=== PATIENT | female | born 1935 | race African-American/Black ===

== ENCOUNTER 2016-04-20 11:25 | Inpatient (IN) | payer OTHER ==
[2016-04-20 12:20] LABS: HEMATOCRIT 28.4 % (37.0-47.0); HEMOGLOBIN 9.2 g/dL (12.0-16.0); IMM GRAN# 0.05 X1000 (0.0-0.04); IMM GRAN% 0.4 % (0.0-0.5); LYMPH# 0.92 X1000 (1.2-3.4); MANUAL DIFF NEEDED? NO; MCH 29.3 PG (27-31); MCHC 32.4 g/dL (33-37); MCV 90.4 FL (81-99); MONO# 0.48 X1000 (0.11-0.59); MONO% 3.7 % (1.7-9.3); MPV 9.1 FL (7.4-10.4); NEUT% 88.9 % (42.2-75.2); PLT 244 X1000 (130-400); RBC 3.14 XMIL (4.2-5.4)
--- NOTE | 2016-04-20 12:36 | PROVIDER DOCUMENTATION ---
HPI-Musculoskeletal Pain/Inj - GENERAL Source: patient - HX OF PRESENT ILLNESS-MUSKULOSKELTAL Quality of Pain: reports: aching Severity in ED: mild, moderate Onset/Duration: 5 days ago Timing: still present Any recent injury?: Yes Locality of Occurance: Home Similar Symptoms Previously?: No Recently seen or treated by another doctor?: No <Tye Mendoza - Last Filed: 04/20/16 13:29> <Jeremiah Soto - Last Filed: 04/20/16 17:27> <Rickie Brown - Last Filed: 04/20/16 17:39> - GENERAL Chief Complaint: Extremity Pain Stated Complaint: HEMATOMA TO LEFT UPPER ARM Time Seen by Provider: 04/20/16 12:20 - HX OF PRESENT ILLNESS-MUSKULOSKELTAL Nature of Presenting Problem: 80 y/o complains of left arm pain from an injury causing a hematoma 5 days ago. Pt states she take Coumadin to prevent blood clots. (Tye Mendoza) Review of Systems - Adult - REVIEW OF SYSTEMS - ADULT Constitutional: denies: chills, fever Eyes: reports: no symptoms reported Ears, Nose, Mouth & Throat: reports: no symptoms reported Cardiovascular: denies: chest pain, edema Respiratory: reports: no symptoms reported Gastrointestinal: reports: no symptoms reported Genitourinary: reports: no symptoms reported Musculoskeletal: reports: no symptoms reported Integumentary: reports: other (hematoma to left upper arm). denies: hives, itching Neurological: reports: no symptoms reported Psychiatric: reports: no symptoms reported Endocrine: reports: no symptoms reported Hematologic/Lymphatic: reports: no symptoms reported Allergic/Immunologic: reports: no symptoms reported All Other Systems: Reviewed and Negative <Tye Mendoza - Last Filed: 04/20/16 13:29> Past History - Adult - PAST MEDICAL HISTORY-ADULT Review of Records: reports: Old Records Reviewed, Nursing Assessment Review, Medications Reviewed <Tye Mendoza - Last Filed: 04/20/16 13:29> Physical Exam-Injury Related - Physical Exam-Injury Related Initial Vital Signs Reviewed: Yes General Appearance: appears well, alert, no apparent distress Eyes: PERRL/EOMI, pink conjunctivae Head, Ears, Nose, Mouth & Throat: moist mucous membranes, normal ENT inspection , TMs normal, pharynx normal Neck: non-tender, full range of motion, supple, normal inspection Respiratory: lungs clear, normal breath sounds, no pleuratic chest pain, no respiratory distress Cardiovascular: normal peripheral pulses, regular rate, rhythm Abdominal Exam: normal bowel sounds, non tender, soft Back Exam: normal inspection, no CVA tenderness, no vertebral tenderness Extremity: normal range of motion, normal gait, swelling, tenderness (left bicep has a large hematoma.). negative: normal inspection Integumentary: normal color, warm/dry Neurologic: grossly normal, no motor/sensory deficits Psych/Mental Status: normal mood/affect, normal thought content, normal thought process, oriented x 3 <Tye Mendoza - Last Filed: 04/20/16 13:29> Progress - EKG 1 Time of EKG reading by physician:: 13:12 EKG Read and Signed by:: Rickie Brown EKG Interpretation (*Must complete 3 of following elements*): Abnormal Rate: 56 Rhythm: sinus alva with sinus arrhythmia QRS: LVH Comments: nonspecfic T wave abnormality - XRAY 1 XRAY: Left XRAY Study: Humerus Impression: Normal XRAY Interpretation: negative fx <Tye Mendoza - Last Filed: 04/20/16 13:29> - CONSULTS/PCP/HOSPITALIST Notification #1 *Consult/PCP/Hospitalist*: (Hospitalist) Time Discussed: 17:28 Consult Disposition: Admit <Jeremiah Soto - Last Filed: 04/20/16 17:27> <Rickie Brown - Last Filed: 04/20/16 17:39> - PLAN OF CARE/RESULTS Progress/Plan/Lab Results: Orders Category Date Time Status HUMERUS-LEFT [RAD] Stat Exams 04/20/16 12:33 Taken CBC WITH ELECTRONIC DIFF [HEME] Stat Lab 04/20/16 12:07 Completed COMPREHENSIVE METABOLIC PANEL [CHEM] Stat Lab 04/20/16 12:07 Completed [address]IME WITH INR PL [COAG] Stat Lab 04/20/16 12:[address] [COAG] Stat Lab 04/20/16 12:07 Completed Vital Signs Temp Pulse Resp BP Pulse Ox 04/20/16 11:27 97.7 F 82 16 179/082 100 No Known Allergies Allergy (Verified 04/20/16 11:39) Amlodipine Besylate/Benazepril [Amlodipine-Benazepril 5-40 mg] 1 PO DAILY Bumetanide 1 PO DAILY 11/16/11 Ferrous Sulfate 1 PO DAILY 11/16/11 Folic Acid 1 mg PO DAILY 11/16/11 Levothyroxine [Synthroid] 100 microgm PO DAILY 11/16/11 Metoprolol Succinate E.r. [Toprol Xl] 25 mg PO BID 11/16/11 Oxybutynin Chloride [Oxybutynin Chloride ER] 1 PO DAILY 11/16/11 SIMVAstatin [Zocor] 40 mg PO QHS 11/16/11 Tramadol HCl [Ultram] 50 mg PO BID PRN 11/16/11 Coumadin 8.5 mg PO DAILY 12/17/11 Coumadin 4.5 mg PO DAILY 12/17/11 Laboratory 04/20/16 04/20/16 04/20/16 12:07 12:07 12:07 WBC 13.11 H RBC 3.14 L Hgb 9.2 L Hct 28.4 L MCV 90.4 MCH 29.3 MCHC 32.4 L RDW Std Deviation 14.5 Plt Count 244 MPV 9.1 Immature Gran % (Auto) 0.4 Neut % (Auto) 88.9 H Lymph % (Auto) 7.0 L Sharp % (Auto) 3.7 Eos % (Auto) 0.0 Baso % (Auto) 0.0 Immature Gran # (Auto) 0.05 H Neut # (Auto) 11.66 H Lymph # (Auto) 0.92 L Sharp # (Auto) 0.48 Eos # (Auto) 0.00 Baso # (Auto) 0.00 Segmented Neutrophils Not Reportable PT 29.5 H INR 2.81 H APTT (Factor Assay) 37.4 Sodium 119 L* Potassium 6.2 H* Chloride 83 L Carbon Dioxide 26 Anion Gap 10 BUN 23 H Creatinine 1.1 H Estimated GFR/1.73 m2 48 BUN/Creatinine Ratio 21 Glucose 154 H Calculated Osmolality 247 Calcium 9.8 Total Bilirubin 1.30 H AST 19 ALT 20 Alkaline Phosphatase 50 Total Protein 7.8 Albumin 4.2 Globulin 4.0 Albumin/Globulin Ratio 1.0 (Tye Mendoza) Orders Category Date Time Status HUMERUS-LEFT [RAD] Stat Exams 04/20/16 12:33 Completed BMP [BASIC METABOLIC PANEL] [CHEM] Stat Lab 04/20/16 15:29 Completed CBC WITH ELECTRONIC DIFF [HEME] Stat Lab 04/20/16 12:07 Completed COMPREHENSIVE METABOLIC PANEL [CHEM] Stat Lab 04/20/16 12:07 Completed [address]IME WITH INR PL [COAG] Stat Lab 04/20/16 12:[address] [COAG] Stat Lab 04/20/16 12:07 Completed 0.9% Sodium Chloride Inj [Ns] 1,000 ml Med 04/20/16 13:38 Discontinued IV 999 mls/hr 0.9% Sodium Chloride Inj [Ns] 1,000 ml Med 04/20/16 15:10 Discontinued IV 999 mls/hr 0.9% Sodium Chloride Inj [Ns] 250 ml Med 04/20/16 13:07 Discontinued IV 999 mls/hr EKG [EKG] Stat Ther 04/20/16 13:07 Draft Laboratory Tests 04/20/16 04/20/16 04/20/16 12:07 12:07 12:07 WBC 13.11 H RBC 3.14 L Hgb 9.2 L Hct 28.4 L MCV 90.4 MCH 29.3 MCHC 32.4 L RDW Std Deviation 14.5 Plt Count 244 MPV 9.1 Immature Gran % (Auto) 0.4 Neut % (Auto) 88.9 H Lymph % (Auto) 7.0 L Sharp % (Auto) 3.7 Eos % (Auto) 0.0 Baso % (Auto) 0.0 Immature Gran # (Auto) 0.05 H Neut # (Auto) 11.66 H Lymph # (Auto) 0.92 L Sharp # (Auto) 0.48 Eos # (Auto) 0.00 Baso # (Auto) 0.00 Segmented Neutrophils Not Reportable PT 29.5 H INR 2.81 H APTT (Factor Assay) 37.4 Sodium 119 L* Potassium 6.2 H* Chloride 83 L Carbon Dioxide 26 Anion Gap 10 BUN 23 H Creatinine 1.1 H Estimated GFR/1.73 m2 48 BUN/Creatinine Ratio 21 Glucose 154 H Calculated Osmolality 247 Calcium 9.8 Total Bilirubin 1.30 H AST 19 ALT 20 Alkaline Phosphatase 50 Total Protein 7.8 Albumin 4.2 Globulin 4.0 Albumin/Globulin Ratio 1.0 04/20/16 15:29 WBC RBC Hgb Hct MCV MCH MCHC RDW Std Deviation Plt Count MPV Immature Gran % (Auto) Neut % (Auto) Lymph % (Auto) Sharp % (Auto) Eos % (Auto) Baso % (Auto) Immature Gran # (Auto) Neut # (Auto) Lymph # (Auto) Sharp # (Auto) Eos # (Auto) Baso # (Auto) Segmented Neutrophils PT INR APTT (Factor Assay) Sodium 120 L* Potassium 5.6 H Chloride 85 L Carbon Dioxide 23 L Anion Gap 12 BUN 23 H Creatinine 1.1 H Estimated GFR/1.73 m2 48 BUN/Creatinine Ratio 21 Glucose 141 H Calculated Osmolality 248 Calcium 9.5 Total Bilirubin AST ALT Alkaline Phosphatase Total Protein Albumin Globulin Albumin/Globulin Ratio Vital Signs - 24 hr 04/20/16 04/20/16 11:27 14:52 Temperature 97.7 F 97.6 F Pulse Rate 82 71 Respiratory 16 13 Rate Blood Pressure 179/082 189/73 O2 Sat by Pulse 100 95 Oximetry 1633 Hospitalist paiged (Jeremiah Soto) Departure <Tye Mendoza - Last Filed: 04/20/16 13:29> - Departure Time of Disposition Order: 17:28 Certified Medical Emergency: Emergent <Jeremiah Soto - Last Filed: 04/20/16 17:27> - Departure Time of Disposition Order: 17:24 Certified Medical Emergency: Emergent <Rickie Brown - Last Filed: 04/20/16 17:39> - Departure DIAGNOSIS: Hyponatremia, Hyperkalemia Disposition: ADMITTED INPATIENT 09 Condition: Stable Referrals: Oneida West MD [Primary Care Provider] - Attestation - Scribe Verification/Attestation Scribe:: Tye Mendoza Acting as Scribe for:: Rickie Brown Scribe documention review:: This chart was documented by a scribe and accurately reflects the service the provider performed and the decisions made by the provider. <Tye Mendoza - Last Filed: 04/20/16 13:29> - Scribe Verification/Attestation #2 Shift Change Time: 14:00 Scribe Name: Jeremiah Soto Acting as Scribe for:: Rickie Brown <Jeremiah Soto - Last Filed: 04/20/16 17:27> Physician Attestation
[2016-04-20 12:42] LABS: INR 2.81 (0.86-1.15); PROTIME 29.5 Seconds (12.1-15.5)
[2016-04-20 12:50] LABS: ALBUMIN 4.2 g/dL (3.5-5.0); CALCIUM 9.8 mg/dL (8.8-10.2); TOTAL BILIRUBIN 1.3 mg/dL (0.20-1.00); TOTAL PROTEIN 7.8 g/dL (6.3-8.3)
[2016-04-20 13:01] LABS: POTASSIUM 6.2 mmol/L (3.5-5.1)
[2016-04-20 13:02] LABS: PTT PL 37.4 Seconds (22.6-43.9)
[2016-04-20] MEDS ORDERED: NS 250 ML IV ONE (13:07)
--- NOTE | 2016-04-20 13:20 | EKG Report ---
Test Performed on : 04/20/2016 1:12:26 PM Test Reason : hyperkalemia Blood Pressure : / mmHG Vent. Rate : 056 BPM Atrial Rate : 056 BPM P-R Int : 148 ms QRS Dur : 090 ms QT Int : 424 ms P-R-T Axes : 061 -17 004 degrees QTc Int : 409 ms Sinus bradycardia. with sinus arrhythmia. Voltage criteria for left ventricular hypertrophy Nonspecific T wave abnormality Abnormal ECG When compared with ECG of 17-DEC-2011 11:01, Nonspecific T wave abnormality now evident in Inferior leads T wave inversion now evident in Lateral leads Unconfirmed Result
[2016-04-20] MEDS ORDERED: NS 1,000 ML IV ONE ×2 (13:38→15:10)
--- NOTE | 2016-04-20 14:09 | Diag Imaging Result Document ---
PROCEDURE NAME: HUMERUS-LEFT - 04/20/2016 LEFT HUMERUS, 2 VIEWS: FINDINGS: There is no evidence of fracture or dislocation. No other definite bony abnormalities are present. IMPRESSION: No acute disease.
[2016-04-20 16:28] LABS: CALCIUM 9.5 mg/dL (8.8-10.2); POTASSIUM 5.6 mmol/L (3.5-5.1)
[2016-04-20] MEDS ORDERED: CATAPRES PO ONE (16:59)
[2016-04-20] MEDS: COUMADIN PO SCH (22:28)
[2016-04-20] MEDS: TOPROL XL PO SCH (22:28)
[2016-04-21] MEDS ORDERED: ZOFRAN IV ONE (02:36)
[2016-04-21 03:29] LABS: ALBUMIN 3.6 g/dL (3.5-5.0); CALCIUM 9.3 mg/dL (8.8-10.2); POTASSIUM 4.4 mmol/L (3.5-5.1); TOTAL BILIRUBIN 0.8 mg/dL (0.20-1.00); TOTAL PROTEIN 6.7 g/dL (6.3-8.3)
--- NOTE | 2016-04-21 03:41 | EKG Report ---
Test Performed on : 04/21/2016 03:33:41 AM Test Reason : EKG changes Blood Pressure : / mmHG Vent. Rate : 054 BPM Atrial Rate : 054 BPM P-R Int : 150 ms QRS Dur : 092 ms QT Int : 446 ms P-R-T Axes : 059 -31 000 degrees QTc Int : 422 ms Sinus bradycardia. with frequent premature ventricular complexes. Left axis deviation Voltage criteria for left ventricular hypertrophy T wave abnormality, consider lateral ischemia Abnormal ECG When compared with ECG of 21-APR-2016 02:38, (Unconfirmed) premature ventricular complexes. are now present T wave inversion more evident in Lateral leads Confirmed by Jose De Jesus Bacon MD ([id number]) on 04/21/2016 8:57:39 PM
[2016-04-21] MEDS ORDERED: NS 1,000 ML IV SCH (04:00)
[2016-04-21] MEDS: SYNTHROID PO SCH (06:20)
[2016-04-21 08:38] LABS: HEMATOCRIT 26.1 % (37.0-47.0); HEMOGLOBIN 8.7 g/dL (12.0-16.0); MCH 30.2 PG (27-31); MCHC 33.3 g/dL (33-37); MCV 90.6 FL (81-99); MPV 9.6 FL (7.4-10.4); RBC 2.88 XMIL (4.2-5.4)
[2016-04-21] MEDS ORDERED: BENAZEPRIL PO SCH (09:00)
[2016-04-21] MEDS ORDERED: AMLODIPINE BESYLATE PO SCH (09:00)
[2016-04-21] MEDS: NORVASC PO SCH (09:24)
[2016-04-21] MEDS: LOTENSIN PO SCH (09:24)
[2016-04-21] MEDS: TOPROL XL PO SCH ×2 (09:25→20:22)
[2016-04-21 09:29] LABS: ALBUMIN 3.9 g/dL (3.5-5.0); CALCIUM 9.4 mg/dL (8.8-10.2); MAGNESIUM 1.7 mg/dL (1.5-2.7); POTASSIUM 4.6 mmol/L (3.5-5.1); TOTAL PROTEIN 6.7 g/dL (6.3-8.3)
--- NOTE | 2016-04-21 10:48 | PROGRESS NOTE ---
DATE: 04/21/2016 SUBJECTIVE: Patient notes she is feeling a little bit better. Denies any current chest pain, palpitations. Denies any fevers or chills. PHYSICAL EXAMINATION: Vital Signs: Temperature 98 degrees, pulse 65, respiratory rate 18, blood pressure 193/53 to 156/59, saturation 98% on room air. General: Patient is a well-developed female who is currently in no respiratory distress. She is awake, alert. Neck: Supple. CV: Regular rate. Chest: Relatively clear. Abdomen: Soft. Extremities: She moves all extremities. Noted to have large bruising and discoloration to her left upper extremity but this has not changed. ASSESSMENT: 1. Hyponatremia. Sodium is slightly improved. It was 120 on admission and currently 123. 2. Hyperkalemia, improving. Currently 4.4. 3. Hyperbilirubinemia, improved after volume replenishment. 4. Leukocytosis. 5. Anemia of chronic disease. 6. Hypertension. PLAN: We will restart the patient's benazepril as her potassium is much better. It appears she was volume depleted which likely caused her potassium to elevate more than benazepril itself. We will continue to follow. Continue IV fluids to replace her sodium. Further orders as needed. We will recheck labs in the a.m. and adjust as needed.
[2016-04-21 13:30] LABS: URINE SOURCE VOIDED
[2016-04-21 13:34] LABS: BILIRUBIN URINE NEGATIVE (NEGATIVE); BLOOD URINE NEGATIVE (NEGATIVE); CLARITY CLEAR (CLEAR); COLOR YELLOW; GLUCOSE URINE NEGATIVE (NEGATIVE); LEUKOCYTES URINE TRACE (NEGATIVE); NITRITE URINE NEGATIVE (NEGATIVE); PROTEIN URINE 1+(30 mg/dL) mg/dL (NEGATIVE); SP GRAVITY URINE 1.005; UROBILINOGEN URINE NORMAL
[2016-04-21 13:42] LABS: URINE CULTURE PL NEEDED? YES; URINE EPITHELIAL CELLS >10 /HPF (<10); URINE RBC <10 /HPF (<10)
--- NOTE | 2016-04-21 16:28 | HISTORY AND PHYSICAL ---
CHIEF COMPLAINT: Left arm injury with hematoma. HISTORY OF PRESENT ILLNESS: This is an 80-year-old female with a history of osteoarthritis, hypertension, hypothyroid, right colon tubulovillous adenoma, anemia, COPD, who presented to the emergency room for evaluation of a left upper arm hematoma. Patient is on warfarin. She states that this happened 5 days ago that she fell and hit her arm up against a piece of furniture. She denies any visual bleeding or any numbness, tingling or change in sensation to her arm or her hand. Good PMS is noted to the left hand. X-ray of the left humerus revealed no evidence of fracture or dislocation. No other definite bony abnormality seen. Labs revealed a sodium of 120 with a potassium of 5.6, a BUN of 23, a creatinine of 1.1 and a glucose of 141. She was given 3 L of saline in the emergency room and is being admitted for further evaluation and treatment. PAST MEDICAL HISTORY: Hypertension, hypothyroidism, COPD, DVT, osteoarthritis, right colon tubulovillous adenoma. PAST SURGICAL HISTORY: Left knee arthroplasty, right hip arthroplasty, right hemicolectomy secondary to tubulovillous adenoma of the right colon and thyroidectomy. SOCIAL HISTORY: She denies alcohol, tobacco, or illicit drug use. ALLERGIES: No known drug allergies. MEDICATIONS: Will be obtained by the nursing staff. REVIEW OF SYSTEMS: A 14 point review of systems is discussed with the patient with pertinent positives stated in the HPI. She denies chest pain, palpitations, dizziness, syncope, shortness of breath, PND, orthopnea, black or bloody vomitus, black or bloody stools, nausea, vomiting, diarrhea or constipation. Hematuria, dysuria, frequency, urgency. Change and sensation to the left arm or hand. PHYSICAL EXAMINATION: GENERAL: This is an 80-year-old female who is sitting in the bed with no distress. VITAL SIGNS: Blood pressure is 156/59 with a heart rate of 60. Respirations are 18, temperature is 98.1 degrees with oxygen saturations of 98-100% on room air. CARDIOVASCULAR: Regular rate and rhythm. S1, S2 appreciated. PULMONARY: Breath sounds are clear. No increased work of breathing noted. GASTROINTESTINAL: Abdomen is soft, nontender, nondistended with bowel sounds in all 4 quadrants. BACK: No CVAT. No spine tenderness. MUSCULOSKELETAL: Good range of motion of joints. NEUROLOGIC: She is alert and oriented x3. EXTREMITIES: No clubbing, cyanosis, or edema to right upper extremity or lower extremities. Left biceps is a little edematous. It is tender. There is a large hematoma noted with good PMS to her left hand. Her calves are nontender. Pulses are palpable x4. ASSESSMENT: 1. Hyponatremia. We will continue to trend labs and give gentle hydration. 2. Hyperkalemia. We will continue to monitor. We will trend labs and treat as appropriate. 3. Hyperbilirubinemia. It did improve after hydration. We will trend labs. 4. Leukocytosis. It is improving. She is afebrile. We will follow labs. 5. Anemia of chronic disease. We will trend labs daily. 6. Hypertension. We will hold her benazepril. as well as her Bumex because of her hyponatremia. We will identify her correct doses and continue her other medications. She does have a history of deep venous thrombosis in the past. She does take Coumadin. We will trend INRs daily and dose keeping her INR between 2 and 3. Dictated by ZOLTAN Marvin for Jelani Molina MD
[2016-04-21 18:29] LABS: CALCIUM 9.2 mg/dL (8.8-10.2); POTASSIUM 4.6 mmol/L (3.5-5.1)
[2016-04-21] MEDS: COUMADIN PO SCH (20:21)
[2016-04-21] MEDS ORDERED: TYLENOL PO PRN (22:58)
[2016-04-22] MEDS: SYNTHROID PO SCH (06:05)
[2016-04-22 07:09] LABS: HEMATOCRIT 24.7 % (37.0-47.0); HEMOGLOBIN 8.1 g/dL (12.0-16.0); MCH 29.9 PG (27-31); MCHC 32.8 g/dL (33-37); MCV 91.1 FL (81-99); RBC 2.71 XMIL (4.2-5.4)
[2016-04-22 07:21] LABS: INR 2.91 (0.86-1.15); PROTIME 30.3 Seconds (12.1-15.5)
[2016-04-22 07:29] LABS: ALBUMIN 3.3 g/dL (3.5-5.0); CALCIUM 8.8 mg/dL (8.8-10.2); MAGNESIUM 1.7 mg/dL (1.5-2.7); POTASSIUM 4.2 mmol/L (3.5-5.1); TOTAL BILIRUBIN 0.9 mg/dL (0.20-1.00); TOTAL PROTEIN 6.2 g/dL (6.3-8.3)
[2016-04-22] MEDS: TOPROL XL PO SCH ×2 (08:17→20:54)
[2016-04-22] MEDS: LOTENSIN PO SCH (08:17)
[2016-04-22] MEDS: NORVASC PO SCH (08:17)
--- NOTE | 2016-04-22 09:29 | PROGRESS NOTE ---
DATE: 04/22/2016 SUBJECTIVE: The patient notes she is feeling a little bit better. Denies any chest pain or palpitations. Notes she has not really been out of bed but she has still been tired and fatigued and needs help to get up. Denies any fevers or chills. OBJECTIVE: Vital signs: Temperature 98, pulse 59, respiratory 18, BP 151/51. General: The patient is a well-developed female who is currently in no respiratory distress. She is awake, alert, pleasant to talk with. Neck: Supple. CV: Regular rate. Chest: Relatively clear. Abdomen: Soft. Extremities: Moves all extremities. Neurologic: No changes. ASSESSMENT: 1. Hyponatremia. 2. Hyperkalemia. 3. Hyperbilirubinemia. 4. Leukocytosis, resolved. 5. Anemia of chronic disease. Hemoglobin and hematocrit are still 8 and 24. Therefore, will hold transfusion currently. 6. Large bruising to left upper extremity secondary to fall and chronic anticoagulation with Coumadin. 7. Hypertension. PLAN: We will continue to follow. Her BMP is still pending this morning. We will follow her sodium levels. Continue metoprolol, Norvasc, and Lotensin for her blood pressure and Synthroid for her hypothyroidism.
[2016-04-22] MEDS: COUMADIN PO SCH (20:54)
[2016-04-23] MEDS: SYNTHROID PO SCH (06:06)
[2016-04-23 06:08] LABS: INR 2.66 (0.86-1.15); PROTIME 28.3 Seconds (12.1-15.5)
[2016-04-23] MEDS ORDERED: ROCEPHIN 1 GM/NS 50 ML IV SCH (06:30)
[2016-04-23 07:03] LABS: ALBUMIN 3.6 g/dL (3.5-5.0); MAGNESIUM 1.7 mg/dL (1.5-2.7); POTASSIUM 4.5 mmol/L (3.5-5.1); TOTAL PROTEIN 6.2 g/dL (6.3-8.3)
[2016-04-23 07:09] LABS: HEMATOCRIT 25.1 % (37.0-47.0); HEMOGLOBIN 8.4 g/dL (12.0-16.0); MCH 30.7 PG (27-31); MCHC 33.5 g/dL (33-37); MCV 91.6 FL (81-99); RBC 2.74 XMIL (4.2-5.4)
[2016-04-23] MEDS ORDERED: NORVASC PO SCH (09:00)
[2016-04-23] MEDS: LOTENSIN PO SCH (09:10)
[2016-04-23] MEDS: TOPROL XL PO SCH (09:10)
[2016-04-23 12:01] VITALS: BP 105/42
--- NOTE | 2016-04-23 15:04 | DISCHARGE SUMMARY ---
ADMISSION DATE: 04/20/2016 DISCHARGE DATE: 04/23/2016 PRIMARY CARE PHYSICIAN: Oneida West MD DIAGNOSES: 1. Hyponatremia, resolved. 2. Hyperkalemia, resolved. 3. Hyperbilirubinemia, resolved. 4. Leukocytosis, resolved. 5. Anemia of chronic disease, stable. 6. Hypertension, stable. 7. Large bruising to left upper extremity secondary to fall and chronic anticoagulation with Coumadin. DIAGNOSTICS: On 04/20/2016, humerus x-ray revealed no evidence of fracture or dislocation. No other definite bony abnormalities. No acute disease. MICROBIOLOGY: Urine culture revealed Klebsiella pneumoniae, pansensitive. HOSPITAL COURSE: Ms. Argueta presented to the emergency room for evaluation of a left arm injury. She did have a hematoma to her left upper arm. She stated this was after a fall. X-rays revealed no fracture or dislocation. She was found to be hyponatremic with a sodium of 119. This sodium was replenished throughout the hospitalization. We did hold her diuretics. Potassium was 5.6. This was trended, and it has been stable at 4.2 to 4.5. She did have a white count of 13 and urine that appeared infected. She was started on Rocephin. Urine did grow Klebsiella. She is being discharged on Cipro. We did trend bilirubin. It was 1.2 on admission, and after hydration she was 0.9 to 1. INR remained within normal limits at 2.6 to 2.9. Blood pressures ran in the 150 to 190 over 50 to 70 range. Her Norvasc was, therefore, increased from 5 mg to 10 mg daily. Throughout the hospitalization, her left upper arm was bruised and discolored, but she did have good movement and sensation with good pulses below, good capillary refill. She denied a change in sensation from right to left arm. PHYSICAL EXAMINATION: Cardiovascular: Regular rate and rhythm. S1 and S2 appreciated. Pulmonary: Breath sounds are clear. No increased work of breathing noted. Gastrointestinal: Abdomen is soft, nontender, nondistended with bowel sounds in all 4 quadrants. Extremities: No clubbing, cyanosis, or edema to right arm or bilateral lower extremities. Left upper extremity, the left upper arm is edematous secondary to bruising, but as stated before, it has good pulses and capillary refill. Her calves are nontender. DISCHARGE MEDICATIONS: Norvasc 10 daily, Cipro 500 mg b.i.d. for 5 days; warfarin 2 mg with Coumadin 5 mg on Tuesday, Tuesday, Tuesday, , Tuesday, Tuesday and 2 mg as directed; folic acid 1 mg daily, Synthroid 100 mcg daily, Toprol-XL 25 b.i.d., Benicar 20/12.5 daily, amlodipine/benazepril 5/40 daily, Zocor 40 mg every night at bedtime. FOLLOWUP: 1. She is to call her provider who manages her Coumadin, notify them of her arm hematoma, as well as hospitalization and medications so her dose can be adjusted. 2. She is to follow up with her primary care provider in 1 to 2 weeks. DISPOSITION: She is being discharged home in stable condition with family members. TIME SPENT: This is a greater than 30 minute discharge from 7:30 to 8:10. Dictated by ZOLTAN Marvin for Jelani Molina MD
== END 2016-04-23 14:00 | disposition home or self-care (01) | DRG 641 ==
LOC: P.ED 11:25 → P.MEDSURG 18:48
PROVIDERS: ATTEND Family Medicine
DX: E87.1 Hypo-osmolality and hyponatremia (principal); N39.0 Urinary tract infection, site not specified; J44.9 Chronic obstructive pulmonary disease, unspecified; E87.5 Hyperkalemia; D63.8 Anemia in other chronic diseases classified elsewhere; I10 Essential (primary) hypertension; S60.222A Contusion of left hand, initial encounter; B96.1 Klebsiella pneumoniae [K. pneumoniae] as the cause of diseases classified elsewhere; E03.9 Hypothyroidism, unspecified; M19.90 Unspecified osteoarthritis, unspecified site; Z79.899 Other long term (current) drug therapy; Z79.01 Long term (current) use of anticoagulants; Z86.718 Personal history of other venous thrombosis and embolism; Z90.49 Acquired absence of other specified parts of digestive tract; W18.30XA Fall on same level, unspecified, initial encounter
CPT/HCPCS: 36415; 80048; 80053; 81001; 82550; 83735; 83880; 84484; 85025; 85027; 85610; 85730; 87077; 87088; 87186; 93005; 93010; 96360; J0696; J2405; J7030; 97116-GP

== ENCOUNTER 2018-03-23 06:03 | Inpatient (IN) ==
[2018-03-23] MEDS ORDERED: HUMULIN R IV ONE ×2 (06:55→09:00)
--- NOTE | 2018-03-23 07:00 | Diag Imaging Result Doc PS360 ---
EXAM: CHEST-1 VIEW 03/23/2018 HISTORY: sob TECHNIQUE: AP portable at 0630 COMMENT: There is alveolar opacity throughout much of the left lower lobe and in the parahilar region of the right lung which has worsened since 06/22/2017. There is some fluid in the minor fissure. There is cardiomegaly. IMPRESSION: Cardiomegaly and pulmonary edema. Electronically signed by Ranjeet Garber 03/23/2018 6:58 AM
--- NOTE | 2018-03-23 07:02 | PROVIDER DOCUMENTATION ---
HPI-Respiratory General - General Chief Complaint: Shortness of Breath Stated Complaint: hyperglycemia Time Seen by Provider: 03/23/18 06:13 Source: patient, EMS Allergies/Adverse Reactions: Patient Allergies Allergy/AdvReac Type Severity Reaction Status Date / Time No Known Allergies Allergy Verified 02/24/18 14:36 Home Medications: Home Medication List Medication Instructions Recorded Confirmed Last Taken Type Acetaminophen [Acetaminophen ER] 650 mg PEG Q6H PRN 04/21/16 03/23/18 Unknown History Amlodipine Besylate [Norvasc] 10 mg PEG DAILY 06/18/17 03/23/18 Unknown History Clonidine Patch [Mmihpcow-Yri-9] 1 each TD Q7D 06/18/17 03/23/18 Unknown History Docusate Sodium 10 ml PEG BID 06/18/17 03/23/18 Unknown History Levothyroxine Sodium [Synthroid] 100 microgm PEG QHS 06/18/17 03/23/18 Unknown History Metoprolol Tartrate 100 mg PEG BID 06/18/17 03/23/18 Unknown History Multivit-Minerals/Ferrous Fum 15 ml PEG DAILY 06/18/17 03/23/18 Unknown History [Multivitamin Liquid] Polyethylene Glycol 3350 [Miralax] 17 gm PEG DAILY 06/18/17 03/23/18 Unknown History Furosemide [Lasix] 40 mg GT DAILY #90 tab 06/23/17 03/23/18 Unknown Rx Insulin Glargine [Basaglar] 10 unit SUBQ QAM #5 insuln.pen 06/23/17 03/23/18 Unknown Rx - History of Present Illness-Resp Nature of Presenting Problem: Pt complained of SOB this am. She denies any CP and is DNR. EMS noted BS was 400s and she was given 10 units insulin at 5am. Quality of Pain: reports: none Severity in ED: reports: moderate Onset/Duration: reports: 1-3 hours ago Timing: reports: still present Exposure: reports: unknown cause Cough Quality/Degree: reports: no cough Episode Frequency: no prior episodes Current Respiratory Medication Therapy: Initiated see nurses note Modifying Factors: improves with: oxygen Associated Symptoms: reports: shortness of breath Similar Symptoms Previously?: Yes Recently seen or treated by another doctor?: No Review of Systems - Adult - REVIEW OF SYSTEMS - ADULT Constitutional: reports: no symptoms reported, see HPI Eyes: reports: no symptoms reported, see HPI Ears, Nose, Mouth & Throat: reports: no symptoms reported, see HPI Cardiovascular: reports: see HPI Respiratory: reports: see HPI, shortness of breath Gastrointestinal: reports: no symptoms reported, see HPI Genitourinary: reports: no symptoms reported, see HPI Musculoskeletal: reports: no symptoms reported, see HPI Integumentary: reports: no symptoms reported, see HPI Neurological: reports: no symptoms reported, see HPI Psychiatric: reports: no symptoms reported, see HPI Endocrine: reports: no symptoms reported, see HPI Hematologic/Lymphatic: reports: no symptoms reported, see HPI Allergic/Immunologic: reports: no symptoms reported, see HPI All Other Systems: Reviewed and Negative Past History - Adult - PAST MEDICAL HISTORY-ADULT Review of Records: reports: Old Records Reviewed, Nursing Assessment Review, Medications Reviewed, Social history reviewed & non-contributory. Cardiovascular: reports: A-Fib Neurological: reports: CVA - IMMUNIZATION STATUS Childhood Immunizations: See Nurse Assessment Flu Vaccine: See Nurse Assessment Physical Exam-General - PHYSICAL EXAM-ADULT Initial Vital Signs Reviewed: Yes - CONSTITUTIONAL General Appearance: alert, moderate distress, thin - EYES Eyes: PERRL/EOMI - HEAD, EARS, NOSE, MOUTH & THROAT HENMT: normocephalic/atraumatic, moist mucous membranes, normal ENT inspection - NECK Neck: non-tender, full range of motion, supple, normal inspection - RESPIRATORY Respiratory: chest non-tender, respiratory distress, decreased breath sounds, rhonchi (B), wheezing - CARDIOVASCULAR Cardiovascular: bradycardia - GASTROINTESTINAL (ABDOMEN) Abdominal Exam: normal bowel sounds, non tender, soft, no organomegaly, no pulsatile mass - LYMPHATIC Lymphatic: no adenopathy - MUSCULOSKELETAL Back Exam: normal inspection, no CVA tenderness, no vertebral tenderness Extremity: normal range of motion, non-tender, normal gait, normal inspection - SKIN Integumentary: normal color, normal turgor, warm/dry - NEUROLOGIC Neurologic: technology director II-XII nml as tested, grossly normal, no motor/sensory deficits - PSYCHIATRIC Psych/Mental Status: normal mood/affect, normal thought content, normal thought process, oriented x 3 Progress - PLAN OF CARE/RESULTS Progress/Plan/Lab Results: Orders Category Date Time [facility] Routine AdmDCTranf 03/23/18 10:12 Active Activity - Up with Assistance ORDERED Care 03/23/18 10:12 Active Apply Mechanical Device [QM] ORDERED Care 03/23/18 10:12 Active Contraindicatio-Pharmacologic As Ordered Care 03/23/18 10:12 Active DVT/PE Risk Assess/Protocol [QM] ORDERED Care 03/23/18 10:12 Active FSBS/Accucheck Result AC + HS Care 03/23/18 10:12 Active Cueto Cath Insertion ORDERED Care 03/23/18 08:42 Completed Intake and Output-Strict ORDERED Care 03/23/18 10:12 Active Resuscitation Status Routine Care 03/23/18 10:10 Ordered Vital Signs Order Q 4-HR ASSESS Care 03/23/18 10:12 Completed Z-Document. for Tele Applied ORDERED Care 03/23/18 10:12 Completed CHEST-1 VIEW [RAD] Stat Exams 03/23/18 06:18 Completed ABG [RESP] Routine Lab 03/23/18 10:30 Completed BASIC METABOLIC PANEL [CHEM] DAILY Lab 03/24/18 05:09 Completed BASIC METABOLIC PANEL [CHEM] DAILY Lab 03/25/18 05:21 Completed BASIC METABOLIC PANEL [CHEM] DAILY Lab 03/26/18 06:00 Ordered BASIC METABOLIC PANEL [CHEM] DAILY Lab 03/27/18 06:00 Ordered BASIC METABOLIC PANEL [CHEM] DAILY Lab 03/28/18 06:00 Ordered BLOOD CULTURE [BLDCUL] Stat Lab 03/23/18 06:25 Results CBC WITH DIFF [HEME] DAILY Lab 03/24/18 05:09 Completed CBC WITH DIFF [HEME] DAILY Lab 03/25/18 05:21 Completed CBC WITH DIFF [HEME] DAILY Lab 03/26/18 06:00 Ordered CBC WITH DIFF [HEME] Stat Lab 03/23/18 06:25 Completed CK PROFILE [SP CHEM] Q8H Lab 03/23/18 10:22 Completed CK PROFILE [SP CHEM] Q8H Lab 03/23/18 18:14 Completed CK PROFILE [SP CHEM] Q8H Lab 03/24/18 01:48 Completed COMPREHENSIVE METABOLIC PANEL [CHEM] Stat Lab 03/23/18 07:56 Completed LACTATE, PLASMA [CHEM] Stat Lab 03/23/18 10:22 Completed MAGNESIUM [CHEM] Stat Lab 03/23/18 07:56 Completed POTASSIUM [CHEM] Stat Lab 03/23/18 10:22 Completed PRO B-NATRIURETIC PEPTIDE Stat Lab 03/23/18 06:25 Completed PT [PROTIME WITH INR] [COAG] Stat Lab 03/23/18 06:25 Completed PTT [COAG] Stat Lab 03/23/18 06:25 Completed TROPONIN T Q8H Lab 03/23/18 10:22 Completed TROPONIN T Q8H Lab 03/23/18 18:14 Completed TROPONIN T Q8H Lab 03/24/18 01:48 Completed TROPONIN T Stat Lab 03/23/18 06:25 Completed Albuterol 0.5% INH Conc [Albuterol 0.5% INH Conc For Med 03/23/18 09:19 Discontinued Hyperkalemia] 25 mg INH NOW ONE Albuterol 2.5MG/Ipratrop 0.5MG [Duoneb (A & A)] Med 03/23/18 10:13 Active 3 ml INH Q2H PRN PRN Albuterol 2.5MG/Ipratrop 0.5MG [Duoneb (A & A)] Med 03/23/18 11:30 Active 3 ml INH RTQ4H Calcium Gluconate 1 gm Med 03/23/18 09:01 Discontinued 0.9% Sodium Chloride Inj [Ns] 50 ml IV NOW CefEPIME [Maxipime] 1 gm Med 03/23/18 10:15 Active 0.9% Sodium Chloride Inj [Ns] 50 ml IV Q12H Dextrose 50% Syringe [D50w Syringe] Med 03/23/18 08:59 Discontinued 50 ml IV NOW ONE Furosemide [Lasix] Med 03/23/18 08:04 Discontinued 40 mg IV NOW ONE Insulin Human Regular [Humulin R] Med 03/23/18 06:55 Discontinued 10 unit IV NOW ONE Insulin Human Regular [Humulin R] Med 03/23/18 09:00 Discontinued 5 unit IV NOW ONE Insulin Human Regular [Humulin R] Med 03/23/18 11:00 Active See Protocol SUBQ 0700,1100,1600,2100 Linezolid 600 mg/D5w [Zyvox 600 mg/D5w] Med 03/23/18 10:15 Active 600 mg in 300 ml IV Q12H Pantoprazole [Protonix] Med 03/23/18 10:15 Active 40 mg IV Q24H Sodium Chloride 0.9% Med 03/23/18 10:15 Active 10 ml INJ DIRECTED Aerosol Treatments Routine Ot 03/23/18 09:19 Completed Aerosol Treatments Routine Ot 03/23/18 10:14 Completed Aerosol Treatments Stat Oth 03/23/18 09:19 Completed Aerosol Treatments Stat Oth 03/23/18 10:14 Completed BIPAP Stat Oth 03/23/18 06:19 Active Telemetry [OM.EQ] Routine Oth 03/23/18 10:12 Active EKG [EKG] Stat Ther 03/23/18 06:06 Draft Transfer/Admit Order [TRANSFER] Routine Transfer 03/23/18 10:10 Completed Result Diagrams: 03/25/18 05:21 03/25/18 05:21 - EKG 1 Time of EKG reading by physician:: 06:07 EKG Read and Signed by:: Armand London EKG Interpretation (*Must complete 3 of following elements*): Abnormal Rate: 47 QRS: other (wide) ST Wave: depressed (inferolateral ischemia) - CONSULTS/PCP/HOSPITALIST Notification #1 *Consult/PCP/Hospitalist*: PATRIZIA ACCEPTS TO DR AVENDANO Time Discussed: 09:02 Consult Disposition: Admit - CHANGE OF SHIFT REPORT (ED Provider) Report Given and Care Transferred to:: Dr Soto Time of Transfer: 07:00 Items Pending: Labs, XRAY Results Departure - Departure Date of Disposition Decision: 03/23/18 Time of Disposition Decision: 09:02 DIAGNOSIS: SOB (shortness of breath), Hyperkalemia, Acute exacerbation of CHF (congestive heart failure), Respiratory distress, Bradycardia DIAGNOSIS: (Ruled Out): Pneumonia Disposition: ADMITTED INPATIENT 09 Certified Medical Emergency: Emergent Condition: Serious - Critical Care Note This patient required my direct & personal management of CC.: Yes Total Time (mins): 31 Critical Care Statement: This patient required my direct personal management to treat or rule out processes, the absence of which, could potentiallly result in sudden, clinically significant life or limb threatening deterioration. Attestation - Physician/ LISA Attestation Patient care was provided by Advanced Practice Provider:: No The physician spent face to face time with patient:: Yes Advanced Practice Provider documentation review:: Supervising physician onsite and consulted in the evaluation and care of this patient. The physician did have a face to face encounter with the patient.
[2018-03-23 07:03] LABS: BASO# 0.01 X1000 (0.0-0.2); BASO% 0.1 % (0.0-0.8); HEMATOCRIT 28.8 % (37.0-47.0); HEMOGLOBIN 9.2 g/dL (12.0-16.0); IMM GRAN# 0.03 X1000 (0.0-0.04); IMM GRAN% 0.2 % (0.0-0.5); LYMPH# 0.53 X1000 (1.2-3.4); LYMPH% 4.4 % (20.5-51.1); MCH 28.6 PG (27-31); MCHC 31.9 g/dL (33-37); MCV 89.4 FL (81-99); MONO# 0.66 X1000 (0.11-0.59); MONO% 5.4 % (1.7-9.3); MPV 10.5 FL (7.4-10.4); NEUT# 10.92 X1000 (1.4-6.5); NEUT% 89.9 % (42.2-75.2); PLT 326 X1000 (130-400); RBC 3.22 XMIL (4.2-5.4); RDW 14.6 % (11.5-14.5); WBC 12.15 X1000 (4.8-10.8)
[2018-03-23 07:09] LABS: INR 0.95; PROTIME 13.4 Seconds (11.0-16.0)
[2018-03-23 07:10] LABS: PTT 27.2 Seconds (22.3-41.8)
--- NOTE | 2018-03-23 07:44 | EKG Report ---
Test Performed on : 03/23/2018 06:07:39 AM Test Reason : AMS Blood Pressure : / mmHG Vent. Rate : 047 BPM Atrial Rate : 258 BPM P-R Int : 000 ms QRS Dur : 174 ms QT Int : 570 ms P-R-T Axes : 000 090 -75 degrees QTc Int : 504 ms Wide QRS rhythm. Right bundle branch block Marked T wave abnormality, consider inferolateral ischemia Abnormal ECG When compared with ECG of 18-JUN-2017 09:40, Wide QRS rhythm. has replaced Sinus rhythm. Unconfirmed Result
[2018-03-23] MEDS ORDERED: LASIX IV ONE (08:04)
[2018-03-23 08:26] LABS: AGAP 17; ALB/GLOB RATIO 0.9; ALBUMIN 3.7 g/dL (3.5-5.0); ALKALINE PHOSPHATASE 79 U/L (32-104); BUN 77 mg/dL (8-22); CHLORIDE 81 mmol/L (98-107); COSMO 282; CREATININE 1.5 mg/dL (0.5-0.9); GLUCOSE 170 mg/dL (70-104); GOT 21 U/L (10-30); GPT 12 U/L (10-36); SODIUM 127 mmol/L (136-145); TCO2 29 mmol/L (25-35); TOTAL BILIRUBIN 0.25 mg/dL (0.20-1.00); TOTAL PROTEIN 7.9 g/dL (6.3-8.3)
[2018-03-23] MEDS ORDERED: D50W SYRINGE IV ONE ×2 (08:59→16:48)
[2018-03-23] MEDS ORDERED: CALCIUM GLUCONATE 1 GM in NS 50 ML IV ONE (09:01)
[2018-03-23] MEDS ORDERED: ALBUTEROL 0.5% INH CONC FOR HYPERKALEMIA INH ONE ×2 (09:19→16:48)
--- NOTE | 2018-03-23 09:59 | ED EKG INTERP ---
This chart was entered by Radha Robledo Scribe, acting as scribe for Huy Soto MD. EKG Interpretation - EKG Time of EKG reading by physician:: 07:10 EKG Read and Signed by:: Huy Soto Rate: 47 Rhythm: wide qrs rhythm QRS: RBB MI Interval: normal Comments: marked t wave abnormality, consider inferolateral ischemia Attestation - Physician/ LISA Attestation Patient care was provided by Advanced Practice Provider:: No The physician spent face to face time with patient:: Yes Advanced Practice Provider documentation review:: Supervising physician onsite and consulted in the evaluation and care of this patient. The physician did have a face to face encounter with the patient. This chart was documented by the indicated scribe, (Radha Robledo Scribe) and accurately reflects the services I performed and decisions made by me, Huy Soto MD, as attested by the provider's signature.
[2018-03-23] MEDS ORDERED: DUONEB (A & A) INH PRN (10:13)
[2018-03-23] MEDS ORDERED: SODIUM CHLORIDE 0.9% INJ SCH (10:15)
[2018-03-23] MEDS: MAXIPIME 1 GM in NS 50 ML IV SCH ×4 (10:15→21:16)
[2018-03-23] MEDS: PROTONIX IV SCH (10:35)
[2018-03-23 10:36] LABS: ALLEN TEST NO; BE 8.2 mmoll (-3.0-3.0); BLOOD TYPE ARTERIAL; HCO3-(ACT) 31.3 mmoll (20.0-26.0); METHB 1.5 % (0.0-1.5); O2(CT) 12.3 mL/dL (15.0-23.0); O2HB 96.3 % (95.0-99.0); PO2(98.6) 151 mmHg (60-100); SAMPLE BLOOD; SAO2 99.7 % (95.0-100.0); SRATE 12 BPM; THB 8.8 g/dL (11.5-17.4); pH(98.6) 7.36 (7.35-7.45)
[2018-03-23 10:38] LABS: MODALITY BI PAP
[2018-03-23] MEDS: DUONEB (A & A) INH SCH ×4 (11:20→23:10)
[2018-03-23] MEDS: HUMULIN R SUBQ SCH ×3 (11:24→21:29)
[2018-03-23] MEDS: ZYVOX 600 MG/D5W 600 MG/300 ML IVPB IV SCH ×3 (11:25→21:16)
--- NOTE | 2018-03-23 11:34 | HISTORY AND PHYSICAL ---
PRIMARY CARE PROVIDER: Oneida West MD CHIEF COMPLAINT: Bradycardia and hyperglycemia. HISTORY OF PRESENT ILLNESS: Ms. Argueta is an 82-year-old female with a history of a hemorrhagic stroke with left-sided hemiparesis. She also has a history of hypertension, hypothyroidism, and chronic kidney disease. She is unable to give any type of history at this time. She was sent from [facility] for bradycardia and hyperglycemia. When she arrived to the E.R. her initial heart rate was in the 30s and her blood sugar was noted to be around 368. Subsequent laboratory data revealed hyperkalemia with a potassium of 6 and an EKG that showed changes consistent with hyperkalemia including bradycardia and wide QRS complex. She was promptly treated with hyperkalemia protocol medications and has slowly been improving with regards to her heart rate. She is mildly overloaded on pulmonary exam and chest x-ray does reveal some infiltrates bilaterally. She has a white count of 12,000 and is anemic. She is a DNR level 1. We are going to admit her for further treatment and evaluation. PAST MEDICAL HISTORY: 1. Admissions in the past for hyperkalemia requiring emergent treatment with potassium lowering medications. 2. History of a hemorrhagic stroke with left-sided hemiparesis. 3. Type 2 diabetes. 4. Chronic kidney disease stage 3. 5. Hypothyroidism. 6. Hypertension. SURGICAL HISTORY: She has had left knee and left hip arthroplasty, right hemicolectomy, thyroidectomy, and PEG tube placement. SOCIAL HISTORY: Currently she lives at [facility]. She does not smoke, drink, or use illicit substances. REVIEW OF SYSTEMS: Unable to obtain. ALLERGIES: Per chart no known drug allergies. HOME MEDICATIONS: Home medications are yet to be compiled by the nursing staff. PHYSICAL EXAMINATION: VITAL SIGNS: Blood pressure is 160/62, heart rate 72, respiratory rate 16, O2 sat 100% on BiPAP, and temperature is 94 degrees Fahrenheit. GENERAL: Chronically ill, disheveled, and frail appearing 82-year-old female lying in a hospital bed in no acute distress. NEUROLOGIC: She mumbles incomprehensively. She does follow commands. She has complete left- sided hemiparesis. She does follow commands on the right with no reduction in sql tech strength. HEENT: The head is atraumatic and normocephalic. Her pupils are equal and sluggish to light response bilaterally. The neck is supple. Trachea is midline. There is no JVD. Oral mucosa is dry. Dentition is poor. CHEST: Crackles in the lung bases. CARDIOVASCULAR: Bradycardic and irregular. S1 and S2 are noted. GASTROINTESTINAL: Soft and nondistended. Bowel sounds are active. EXTREMITIES: Trace edema. Venous stasis noted in the lower extremities. Pulses are diminished at 1+ bilaterally. DIAGNOSTIC DATA: Chest x-ray shows cardiomegaly and pulmonary edema with fluid in the fissures. EKG shows what appears to be a junctional rhythm with wide QRS complexes and a right bundle branch block. The rate is 47 beats a minute. WBC is 12.15, hemoglobin 9.2, hematocrit 28.8, and platelet count 326. INR is 0.95. ABG: On 60% BiPAP pH is 7.36, CO2 62, O2 151 , and bicarbonate 31.3. Lactate is 2.6. Sodium is 127, potassium 6, chloride 81, CO2 29, anion gap 17, BUN 77, creatinine 1.5, glucose 170, calcium 9, and magnesium 2.6. LFTs are within normal limits. ProBNP is 19. ASSESSMENT AND PLAN: 1. Hyperkalemia with associated bradycardia: She has been given multiple potassium-lowering medications. Her rate has already come up and she seems to be stabilizing from a cardiac standpoint. The etiology of her hyperkalemia is a bit unclear. We need to see what medicines she is on at home to see if she is on any potassium-raising medications or exogenous potassium in an of itself. She does have renal insufficiency which does complicate her hyperkalemia. However, her renal function is not far from her baseline. Will certainly avoid any potassium-raising medications and watch her renal function closely. Will continue to trend her BMP and treat any electrolyte abnormalities as they come. 2. Hypercapnic respiratory failure: The patient has a combination of congestive heart failure and presumed pneumonia. We have ordered cefepime and Zyvox for pneumonia and Lasix has been given in the ER. Will monitor her response closely. 3. Community-acquired pneumonia: She does reside at [facility], so we will broaden antibiotics to cefepime and Zyvox. Blood cultures and sputum cultures have been ordered. Continue antibiotics, breathing treatments, aggressive pulmonary toilet. 4. Congestive heart failure: She has had an echocardiogram done in May of last year, so this will need to be repeated as her proBNP is almost 20,000. She has evidence of pulmonary edema. Will trend her cardiac enzymes, follow strict I's and O's, daily weights, and go from there. 5. History of hemorrhagic cerebrovascular accident, aware. She has continued left-sided hemiparesis and altered mental status, but this appears to be at baseline. Will monitor. 6. Chronic kidney disease: Creatinine appears to be at baseline. Will be cautious with any medications that may induce a kidney injury. 7. Anemia. Her hemoglobin and hematocrit is at historic baseline. Will continue to monitor. She has had iron studies done, but these were in May, so will probably repeat those. 8. Deep vein thrombosis prophylaxis with sequential compression devices, given the history of hemorrhagic cerebrovascular accident. Further recommendations to follow. Dictated by ZOLTAN Muñoz for Randy Greene MD cc: ZOLTAN Muñoz MD I have seen and examined Ms Argueta today. I have also reviewed her labs and imaging studies. Ms Argueta is a resident of [facility]. Comes in today due to symptomatic Hyperkalemia and respiratory failure. She is also altered. Baseline not known for now. I agree with the above HPI and the plan reflect my opinion discussed with the BANNER PAINTER. KOREY
[2018-03-23] MEDS ORDERED: HUMULIN R SUBQ ONE (16:49)
[2018-03-23 20:55] LABS: URINE SOURCE CATH
[2018-03-23 20:59] LABS: BILIRUBIN URINE NEGATIVE (NEGATIVE); BLOOD URINE SMALL (NEGATIVE); COLOR YELLOW; GLUCOSE URINE NEGATIVE (NEGATIVE); KETONE URINE NEGATIVE (NEGATIVE); LEUKOCYTES URINE SMALL (NEGATIVE); NITRITE URINE NEGATIVE (NEGATIVE); PROTEIN URINE TRACE mg/dL (NEGATIVE); SP GRAVITY URINE 1.008; TURBIDITY URINE CLEAR (CLEAR); UROBILINOGEN URINE NORMAL (NORMAL)
[2018-03-23 21:00] LABS: UR EPITHELIAL CELLS <10 /HPF (<10); URINE BACTERIA NEGATIVE /HPF; URINE RBC 20-40 /HPF (<10); URINE WBC <10 /HPF (<10)
[2018-03-24] MEDS: DUONEB (A & A) INH SCH ×2 (03:02→19:05)
[2018-03-24 06:03] LABS: HEMATOCRIT 26.6 % (37.0-47.0); HEMOGLOBIN 8.6 g/dL (12.0-16.0); IMM GRAN# 0.02 X1000 (0.0-0.04); IMM GRAN% 0.2 % (0.0-0.5); LYMPH# 0.95 X1000 (1.2-3.4); LYMPH% 7.6 % (20.5-51.1); MCH 28.5 PG (27-31); MCHC 32.3 g/dL (33-37); MCV 88.1 FL (81-99); MONO# 0.67 X1000 (0.11-0.59); MONO% 5.4 % (1.7-9.3); MPV 10.2 FL (7.4-10.4); NEUT# 10.84 X1000 (1.4-6.5); NEUT% 86.8 % (42.2-75.2); PLT 266 X1000 (130-400); RBC 3.02 XMIL (4.2-5.4); RDW 14.4 % (11.5-14.5); WBC 12.48 X1000 (4.8-10.8)
[2018-03-24 06:07] LABS: CALCIUM 9.2 mg/dL (8.8-10.2); CREATININE 1.2 mg/dL (0.5-0.9); MAGNESIUM 2.5 mg/dL (1.5-2.7); POTASSIUM 5.5 mmol/L (3.5-5.1)
[2018-03-24] MEDS: HUMULIN R SUBQ SCH ×4 (06:15→21:44)
[2018-03-24] MEDS ORDERED: VELTASSA PO SCH (09:00)
[2018-03-24] MEDS: PROTONIX IV SCH ×2 (09:12→09:38)
[2018-03-24] MEDS: MAXIPIME 1 GM in NS 50 ML IV SCH ×4 (09:12→21:44)
[2018-03-24] MEDS: ZYVOX 600 MG/D5W 600 MG/300 ML IVPB IV SCH ×4 (09:13→21:43)
[2018-03-24] MEDS: NS 1,000 ML IV SCH (10:04)
--- NOTE | 2018-03-24 10:19 | Diag Imaging Result Doc PS360 ---
EXAM: CHEST-PORTABLE HISTORY: dyspnea TECHNIQUE: Chest single view COMPARISON: 03/23/2018 FINDINGS: Poor inspiratory effort. The heart is mildly prominent. The vasculature is less distended than on the prior study. There is a small left pleural effusion with basilar atelectasis. There may also be basilar infiltrates. IMPRESSION: Slight interval improvement. Electronically signed by Nato Momin 03/24/2018 10:17 AM
--- NOTE | 2018-03-24 10:38 | PROGRESS NOTE ---
DATE: 03/24/2018 SUBJECTIVE: This morning, Ms. Argueta continues to be on the BiPAP. She is not able to give any interval history. OBJECTIVE: Vital Signs: Blood pressure is 159/48, pulse is 78, respirations 16 , temperature 98.9 degrees. The patient was saturating 100% on BiPAP. Ms. Argueta is an 82-year-old -[place] female she. She is in bed. She was under the BiPAP. Mucosa is pink and moist. Anicteric. Acyanotic. Neck supple. Chest: Air entry is bilaterally reduced. There is diffuse end expiratory wheezing. BS are yet wheezing and some few crackles posteriorly. Cardiovascular: Regular rate and rhythm. No murmurs, no rubs, no gallops. Abdomen is soft.Peg tube in place. Old midline surgical scar noted. Extremities: No pedal edema. PLASTICS FABRICATOR OR WELDER: The patient is awake. He is able to say a few words, but for the most part she is not very comprehensible, and she does not really follow any command. She uses the right side very well; not so left. LABORATORY DATA: WBC is 12.48, hemoglobin is 8.6, platelet count of 366,000. Sodium is 129, potassium is 5.5 from 6.0. Sodium is 85. BUN went up to 86. Creatinine is 1.6. DIAGNOSTIC STUDIES: A chest x-ray which was done yesterday shows cardiomegaly with pulmonary edema. CURRENT MEDICATIONS: 1. Cefepime 1 g q. 12. 2. Zyvox 600 q.12; today is day 1. ASSESSMENT: 1. Symptomatic hyperkalemia on presentation (with bradycardia and some generalized weakness). Potassium is getting better. This morning, it is still on the higher end. We will continue with veltassa. 2. Pulmonary edema with suspicion of underlying pneumonia as well. The patient is getting IV antibiotics. We will continue with aggressive pulmonary. 3. History of hemorrhagic stroke with left-sided hemiparesis noted. 4. Ezktw-vk-ianjehd kidney failure. Creatinine went up to about 1.5 in January ; it was 1.0; this morning, it is 1.2. We are going to continue with gentle hydration and evaluate him in the morning. 5. Sepsis secondary to pneumonia. We will continue with the antibiotics. Cultures have been done. Still pending the report. We will continue with the current antibiotic coverage. We will also start the patient on gentle hydration today. 6. Clinical volume depletion. We will also start the patient on gentle hydration today. Improving 7. Suspect aspiration. Patient is currently n.p.o. We will continue with the antibiotics. Cultures have been done, still pending the report and will continue with current antibiotic coverage. 8. Peg Tube Feeding. Will consult dietitian cc: Randy Greene MD MTDD
[2018-03-24 16:36] LABS: ESTIMATED GFR > 60
[2018-03-24 16:41] LABS: AGAP 12; BUN 72 mg/dL (8-22); CALCIUM 9.2 mg/dL (8.8-10.2); CHLORIDE 86 mmol/L (98-107); COSMO 282; GLUCOSE 133 mg/dL (70-104); POTASSIUM 5.2 mmol/L (3.5-5.1); SODIUM 129 mmol/L (136-145); TCO2 31 mmol/L (25-35)
[2018-03-25] MEDS: NS 1,000 ML IV SCH ×2 (00:29→08:19)
[2018-03-25] MEDS: DUONEB (A & A) INH SCH ×7 (03:42→23:44)
[2018-03-25 05:53] LABS: HEMATOCRIT 23.5 % (37.0-47.0); HEMOGLOBIN 7.5 g/dL (12.0-16.0); IMM GRAN# 0.02 X1000 (0.0-0.04); IMM GRAN% 0.2 % (0.0-0.5); LYMPH# 1.38 X1000 (1.2-3.4); LYMPH% 13.2 % (20.5-51.1); MCH 28.6 PG (27-31); MCHC 31.9 g/dL (33-37); MCV 89.7 FL (81-99); MONO# 0.89 X1000 (0.11-0.59); MONO% 8.5 % (1.7-9.3); MPV 10.4 FL (7.4-10.4); NEUT# 8.13 X1000 (1.4-6.5); NEUT% 78.1 % (42.2-75.2); PLT 268 X1000 (130-400); RBC 2.62 XMIL (4.2-5.4); RDW 14.7 % (11.5-14.5); WBC 10.42 X1000 (4.8-10.8)
[2018-03-25] MEDS: HUMULIN R SUBQ SCH ×4 (06:06→21:39)
[2018-03-25 06:33] LABS: AGAP 9; BUN 68 mg/dL (8-22); CALCIUM 9.2 mg/dL (8.8-10.2); CHLORIDE 93 mmol/L (98-107); COSMO 290; CREATININE 0.8 mg/dL (0.5-0.9); ESTIMATED GFR > 60; GLUCOSE 136 mg/dL (70-104); MAGNESIUM 2.3 mg/dL (1.5-2.7); POTASSIUM 4.4 mmol/L (3.5-5.1); SODIUM 134 mmol/L (136-145); TCO2 32 mmol/L (25-35)
--- NOTE | 2018-03-25 07:31 | Diag Imaging Result Doc PS360 ---
EXAM: CHEST-PORTABLE HISTORY: dyspnea TECHNIQUE: Portable chest single view COMPARISON: 03/24/2018 FINDINGS: The heart remains mildly enlarged. There is a small left pleural effusion. Atelectasis and/or infiltrates remain in the left base. There is vascular distention. The overall appearance is similar to the prior study. IMPRESSION: No interval improvement. Electronically signed by Nato Momin 03/25/2018 7:28 AM
[2018-03-25 08:55] LABS: PCO2(98.6) 62 mmHg (35-45)
--- NOTE | 2018-03-25 09:05 | PROGRESS NOTE ---
DATE: 03/25/2018 SUBJECTIVE: This morning, Ms. Argueta referred to be doing a little better. She is very limited in her ability to speak; she was just nodding. Clinically, she seems more stable. Per the nursing staff, no changes overnight. OBJECTIVE: Vital Signs: Blood pressure is 149/78, pulse is 67, respiration is 20, temperature is 98.7. The patient was saturating 100% on the BiPAP. On general Exam, Ms. Argueta is an 82-year-old -[place] female. She was in bed. She is on BiPAP, synchronizing well. Mucosa was pink and moist. Anicteric. Acyanotic. Neck was supple. Air entry was bilaterally reduced. There was a few crackles posteriorly. I did not hear any wheezing this morning. Cardiovascular: Regular rate and rhythm. There are no murmurs, no rubs, no gallops. Abdomen is soft, nontender. There is an old surgical scar on the anterior abdominal wall. There is a PEG tube in place. Extremities: No pedal edema. TECHNICAL ANALYST: The patient was awake, appears to be mumbling some words that could not be understood. She is paralyzed on the left side, but she will move very actively the right side. Cueto catheter was in place. LABORATORY DATA: WBC is down to 10.42, hemoglobin is 7.5, platelet count is 268,000. Chemistry is also reviewed. Sodium is up to 134, potassium is normalized to 4.4, chloride is 92, bicarb is 32. The patient's BUN is down to 68 and creatinine is down to 0.8. So far, blood cultures and urine cultures are negative. A chest x-ray this morning continued to show the heart is mildly enlarged. There is a small left pleural effusion. Atelectasis and/or infiltrate remain in the left base. Vascular distention. Overall appearance has not changed. We will review patient's current medications: 1. She is on cefepime 1 g q.12; today is day 2. 2. Insulin, sliding scale. 3. Zyvox 600 q.12; today is day 2. 4. Protonix 40 mg IV daily. 5. Veltassa 8.4 mg daily. 6. Normal saline at 75 mL per hour. ASSESSMENT: 1. Symptomatic hyperkalemia on presentation (bradycardia and generalized weakness). This has improved. Potassium has normalized. 2. Pulmonary edema with suspicion of underlying pneumonia. We will continue with current antibiotic therapy and aggressive pulmonary toilette. 3. Hypoxemic respiratory failure. The patient was placed on BiPAP. We will continue to titrate her oxygen demands. 4. Sepsis secondary to pneumonia. The patient is adequately fluid resuscitated and did not need any pressors, and she is currently on antibiotics. So far, blood cultures have been negative. 5. Clinical volume depletion, improved. 6. Acute kidney injury secondary to volume depletion, improved with adequate fluid resuscitation. Patient creatinine is down to 0.8 and BUN has also come down to 68. 7. 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 8. Status post PEG tube for feeding. We will continue with her tube feedings. In general, this morning, Ms. Argueta looks a little better. She looks clinically more stable than yesterday. We are going to continue with her current antibiotic coverage. We will be cutting down on the IV fluids and see if she will tolerate just a face mask for oxygen therapy. cc: Randy Greene MD
[2018-03-25] MEDS: ZYVOX 600 MG/D5W 600 MG/300 ML IVPB IV SCH ×2 (09:46→23:55)
[2018-03-25] MEDS: MAXIPIME 1 GM in NS 50 ML IV SCH ×2 (09:46→22:53)
[2018-03-25] MEDS: PROTONIX IV SCH (09:47)
[2018-03-25] MEDS: HYDROCODONE/APAP 7.5-325/15 ML PEG PRN (20:35)
[2018-03-26] MEDS: NS 1,000 ML IV SCH ×2 (01:55→08:04)
[2018-03-26] MEDS: HYDROCODONE/APAP 7.5-325/15 ML PEG PRN ×3 (02:17→19:46)
[2018-03-26] MEDS: DUONEB (A & A) INH SCH ×6 (03:51→23:06)
[2018-03-26 05:22] LABS: ALLEN TEST YES; BE 9.5 mmoll (-3.0-3.0); BLOOD TYPE ARTERIAL; HCO3-(ACT) 32.4 mmoll (20.0-26.0); METHB 1.1 % (0.0-1.5); O2(CT) 9.6 mL/dL (15.0-23.0); O2HB 95.9 % (95.0-99.0); PO2(98.6) 89 mmHg (60-100); SAMPLE BLOOD; SAO2 98.8 % (95.0-100.0); pH(98.6) 7.42 (7.35-7.45)
[2018-03-26 05:24] LABS: MODALITY CANNULA; PCO2(98.6) 54 mmHg (35-45)
[2018-03-26 06:04] LABS: EOS# 0.06 X1000 (0.0-0.7); EOS% 0.6 % (0.0-10.0); HEMATOCRIT 22.3 % (37.0-47.0); HEMOGLOBIN 6.8 g/dL (12.0-16.0); IMM GRAN# 0.03 X1000 (0.0-0.04); IMM GRAN% 0.3 % (0.0-0.5); LYMPH# 1.57 X1000 (1.2-3.4); LYMPH% 14.6 % (20.5-51.1); MCH 28.2 PG (27-31); MCHC 30.5 g/dL (33-37); MCV 92.5 FL (81-99); MONO# 0.86 X1000 (0.11-0.59); MPV 10.4 FL (7.4-10.4); NEUT# 8.21 X1000 (1.4-6.5); NEUT% 76.5 % (42.2-75.2); PLT 271 X1000 (130-400); RBC 2.41 XMIL (4.2-5.4); RDW 15.1 % (11.5-14.5); WBC 10.73 X1000 (4.8-10.8)
[2018-03-26 06:07] LABS: ESTIMATED GFR > 60
[2018-03-26 06:08] LABS: AGAP 10; BUN 57 mg/dL (8-22); CALCIUM 8.3 mg/dL (8.8-10.2); CHLORIDE 97 mmol/L (98-107); COSMO 292; CREATININE 0.8 mg/dL (0.5-0.9); GLUCOSE 145 mg/dL (70-104); MAGNESIUM 2.2 mg/dL (1.5-2.7); POTASSIUM 4.2 mmol/L (3.5-5.1); SODIUM 137 mmol/L (136-145); TCO2 30 mmol/L (25-35)
[2018-03-26] MEDS: HUMULIN R SUBQ SCH ×4 (06:44→22:09)
--- NOTE | 2018-03-26 08:18 | Diag Imaging Result Doc PS360 ---
EXAM: CHEST-PORTABLE - 03/26/2018 HISTORY: dyspnea TECHNIQUE: Portable chest COMPARISON: 03/25/2018 FINDINGS: There is cardiomegaly. Inspiration is mildly shallow. There is persistent infiltrate or atelectasis at the left base, with small left pleural effusion. There is no pneumothorax identified. IMPRESSION: Cardiomegaly. Infiltrate or atelectasis at left base, with small left pleural effusion. Electronically signed by Nacho Maciel 03/26/2018 8:16 AM
[2018-03-26] MEDS: PROTONIX IV SCH (10:02)
[2018-03-26] MEDS: MAXIPIME 1 GM in NS 50 ML IV SCH ×2 (10:02→22:30)
[2018-03-26] MEDS: ZYVOX 600 MG/D5W 600 MG/300 ML IVPB IV SCH ×2 (10:02→23:04)
--- NOTE | 2018-03-26 11:23 | PROGRESS NOTE ---
DATE: 03/26/2018 SUBJECTIVE: This morning Ms. Argueta refers to be doing fairly okay. No acute changes. OBJECTIVE: Vital signs: Blood pressure is 173/78, pulse 107, respirations 20, temperature 98.3 degrees. Patient was saturating 100% on 2 L. General: Ms. Argueta is an 82-year-old female. She was in bed. She did not seem to be in cardiopulmonary distress. HEENT: Mucosa is pink and moist. Anicteric. Acyanotic. Neck: Supple. Chest: Air entry was bilaterally reduced. A few crackles in both lungs posteriorly. No wheezing, no rhonchi. Cardiovascular: Regular rate and rhythm. No murmurs, no rubs, no gallops. Abdomen: Abdomen was soft. There is an old surgical scar on the anterior abdominal wall. PEG tube is in place and Cueto catheter is in place. Extremities: No pedal edema. LINE SUPPLY: The patient is awake and alert, is oriented to person and to place, disoriented to time. He is able to follow some basic commands. Still has some weakness on the left side. LABORATORY DATA: 1. WBC is 10.72, hemoglobin is 6.8, platelet count of 271. The pH is 7.42, pCO2 is down to 54. 2. Sodium is 137, potassium is 4.2, chloride is 97, bicarbonate is 30. BUN is down to 57, creatinine has normalized to 0.8. 3. Vitamin D level is 31.7 which is sufficient. However, patient's phosphorus is 1.8. IMAGING: A chest x-ray this morning shows infiltrates or atelectasis at left base with small pleural effusion. MICROBIOLOGY: So far, microbiology reveals urine culture is negative, blood culture is negative. CURRENT MEDICATIONS: Current medications have also been reviewed. She is still on cefepime 1 g q. 12 hours; today is day. Zyvox 600 q. 12 hours; today is day 3. ASSESSMENT: 1. Symptomatic hyperkalemia on presentation (bradycardia with generalized weakness. This is improved). The patient's potassium level has normalized. 2. Pulmonary edema with suspicion of underlying pneumonia (left lower lobe). We will continue with the current antibiotic therapy and aggressive pulmonary toilet. 3. Acute hypoxemic respiratory failure, improved. 4. Sepsis on presentation secondary to pneumonia. The patient did not need any pressors. She was adequately fluid resuscitated and on antibiotics. Blood cultures have been negative. 5. Clinical volume depletion improved. 6. Acute kidney injury secondary to volume depletion, improved with adequate fluid resuscitation. BUN is on downward trend and creatinine has normalized. We will discontinue the intravenous fluids. 7. 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 8. Percutaneous endoscopic gastrostomy tube feedings. Will continue. Dietitian is on board. 9. Anemia. Hemoglobin has dropped to 6.8. I think part of it could be dilutional. We will, however, go ahead and group and crossmatch Ms. Argueta and give her 2 packed red blood cells. PLAN: So, in general, I think Ms. Argueta is fairly stable. We are going to restart her home medications. We are going to continue with the current antibiotic coverage as well. We will transfer Ms. Argueta from the [facility] to the medical floor, get physical therapy to start working with her. I am also going to discontinue her Cueto catheter, and hopefully we can get her back to the snf tomorrow. cc: Randy Greene MD
[2018-03-26] MEDS ORDERED: NS 500 ML ONE ×2 (12:00→16:45)
[2018-03-26] MEDS: NEUTRA-PHOS PO SCH ×4 (13:23→22:11)
[2018-03-26] MEDS: COLACE LIQUID PEG SCH ×2 (19:47→22:11)
[2018-03-26] MEDS: SYNTHROID PEG SCH ×2 (19:48→22:11)
[2018-03-26] MEDS: LOPRESSOR PEG SCH ×2 (19:48→22:10)
[2018-03-26] MEDS: CATAPRES-TTS-3 TD SCH ×2 (19:48→22:11)
[2018-03-26] MEDS ORDERED: APRESOLINE IV ONE (23:23)
[2018-03-27] MEDS: DUONEB (A & A) INH SCH ×3 (03:14→16:48)
[2018-03-27 05:55] LABS: ESTIMATED GFR > 60
[2018-03-27] MEDS: HUMULIN R SUBQ SCH ×3 (06:02→15:31)
[2018-03-27] MEDS: NORVASC PEG SCH ×2 (06:11→09:05)
[2018-03-27 06:28] LABS: AGAP 10; BUN 53 mg/dL (8-22); CALCIUM 9.1 mg/dL (8.8-10.2); CHLORIDE 97 mmol/L (98-107); COSMO 289; CREATININE 0.8 mg/dL (0.5-0.9); GLUCOSE 146 mg/dL (70-104); MAGNESIUM 2.2 mg/dL (1.5-2.7); POTASSIUM 4.6 mmol/L (3.5-5.1); SODIUM 136 mmol/L (136-145); TCO2 29 mmol/L (25-35)
[2018-03-27 06:56] LABS: BASO# 0.01 X1000 (0.0-0.2); BASO% 0.1 % (0.0-0.8); EOS# 0.29 X1000 (0.0-0.7); EOS% 1.9 % (0.0-10.0); HEMATOCRIT 30.8 % (37.0-47.0); HEMOGLOBIN 9.9 g/dL (12.0-16.0); IMM GRAN# 0.07 X1000 (0.0-0.04); IMM GRAN% 0.5 % (0.0-0.5); LYMPH# 1.61 X1000 (1.2-3.4); LYMPH% 10.4 % (20.5-51.1); MCH 29.6 PG (27-31); MCHC 32.1 g/dL (33-37); MCV 92.2 FL (81-99); MONO# 0.92 X1000 (0.11-0.59); NEUT# 12.52 X1000 (1.4-6.5); NEUT% 81.1 % (42.2-75.2); PLT 258 X1000 (130-400); RBC 3.34 XMIL (4.2-5.4); RDW 15.1 % (11.5-14.5); WBC 15.42 X1000 (4.8-10.8)
[2018-03-27] MEDS ORDERED: THERAGRAN LIQUID PEG SCH (09:00)
[2018-03-27] MEDS ORDERED: BASAGLAR SUBQ SCH (09:00)
[2018-03-27] MEDS ORDERED: MIRALAX PEG SCH (09:00)
[2018-03-27] MEDS: LOPRESSOR PEG SCH (09:05)
[2018-03-27] MEDS: NEUTRA-PHOS PO SCH ×2 (09:05→13:45)
[2018-03-27] MEDS: COLACE LIQUID PEG SCH (09:06)
[2018-03-27] MEDS: MAXIPIME 1 GM in NS 50 ML IV SCH (09:07)
[2018-03-27] MEDS: ZYVOX 600 MG/D5W 600 MG/300 ML IVPB IV SCH (09:07)
[2018-03-27] MEDS: PROTONIX IV SCH (09:07)
[2018-03-27] MEDS: HYDROCODONE/APAP 7.5-325/15 ML PEG PRN (09:32)
--- NOTE | 2018-03-27 12:58 | DISCHARGE SUMMARY ---
ADMISSION DATE: 03/23/2018 DISCHARGE DATE: 03/27/2018 DISPOSITION: Back to the custodial ([facility]). ADMISSION DIAGNOSES: 1. Hyperkalemia associated with bradycardia. 2. Hypercarbic respiratory failure. 3. Congestive heart failure. 4. History of hemorrhagic stroke. 5. Anemia. DIAGNOSIS AT THE TIME OF DISCHARGE: 1. Symptomatic hyperkalemia on presentation (associated with bradycardia with generalized weakness), improved. 2. Pulmonary edema on presentation with suspicion of underlying pneumonia (left lower lobe), improved. 3. Acute hypoxemic respiratory failure, resolved. 4. Sepsis on presentation secondary to pneumonia. 5. Clinical volume depletion. Improved. 6. Acute kidney injury secondary to volume depletion, improved. 7. 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 8. PEG tube feedings. 9. Anemia associated with acute illness. The patient got 2 PRBC transfusions and this improved. DISCHARGE MEDICATIONS: 1. Levothyroxine 100 mcg daily. 2. Metoprolol 100 mg b.i.d. 3. Clonidine 1 patch. 4. Amlodipine 10 mg daily. 5. Insulin 10 units subcutaneous daily. 6. Omeprazole 20 mg daily. 7. Augmentin 875 q.12. 8. Doxycycline 100 mg b.i.d. PRESENTING COMPLAINT: Bradycardia and hyperglycemia. HISTORY OF PRESENTING COMPLAINT: Ms. Argueta is an 82-year-old female with a history of hemorrhagic stroke in the past with subsequent left-sided hemiparesis, hypertension, hypothyroidism, came to the emergency department from [facility] because of bradycardia and hyperglycemia. Upon presentation, patient's heart rate was found to be in the 30s and the glucose was about 368. Subsequent investigations revealed a potassium level of 6. EKG did show bradycardia with wide QRS complex. The patient was treated initially with the hyperkalemia protocol and admitted for further medical evaluation. HOSPITAL COURSE: The patient was initially admitted to [facility]. Initial chest x-ray did reveal cardiomegaly and pulmonary edema. However, clinically, patient did look more clinically volume depleted with creatinine level of about 1.5. Patient was adequately hydrated, which normalized the creatinine. During the hospital course the patient was also found to have possible pneumonia, was treated with IV antibiotics. WBC continued to improve. Today Ms. Argueta refers to be feeling a lot better. Feels stronger. She is more alert. Glucose has been normalized and potassium is down to 4.6. She is fairly stable for discharge. She is going to continue 5 more days of p.o. antibiotics for a total of 10 days. The patient will follow up with her primary care doctor. At the time of the discharge this morning, her blood pressure is 180/59, pulse is 71, respirations 14, temperature is 98.4 degrees. The patient's physical exam is unremarkable except for distant crackles posteriorly. The patient has a PEG tube in place and a suprapubic catheter in place. She has left-sided weakness and she is also aphasic. She is clinically stable for discharge back to the custodial. All the discharge instructions discussed. TIME SPENT FOR DISCHARGE: 35 minutes. cc: MD Itz Bowling MD
[2018-03-27 15:27] VITALS: BP 168/61
== END 2018-03-27 17:27 | DRG 871 ==
LOC: SUPCPDRO → ED 06:03 → EDIPHOLD 10:28 → 3S 16:28 → 4N 03-27 10:23
PROVIDERS: ATTEND Internal Medicine
CPT/HCPCS: 36430; 51702; 71010; 71045; 80048; 80053; 81001; 82306; 82550; 82805; 82948; 83605; 83735; 83880; 84100; 84132; 84484; 85025; 85610; 85730; 86850; 86900; 86901; 86920; 87040; 87088; 93005; 94640; 94660; 94761; 94762; 96365; 96375; 96376; 97161; 99285; A9270; C9113; J0360; J0610; J0692; J1940; J2020; J7030; J7040; P9016; S0164; XXXXX